=== PATIENT | female | born 2000 | race Caucasian/White ===

== ENCOUNTER 2021-10-01 08:40 | Day surgery (SDC) | payer BC ==
[~2021-10-01 08:40] MED LIST: Dexmedetomidine 200 MCG/2 ML SDV ONE; Glycopyrrolate 0.2 MG/ML SDV ONE; Lactated Ringers 1,000 ML IV SCH; Lidocaine 2% 5 ML SDV ONE; Ondansetron 4 MG/2 ML SDV ONE; Phenylephrine HCl In 0.9% NaCl 1 MG/10 ML Vial ONE; Propofol 200 MG/20 ML SDV ONE; Scopolamine 1.5 MG Transdermal Patch ONE
[2021-10-01] MEDS ORDERED: fentaNYL 100 MCG/2 ML SDV ONE (09:43)
[2021-10-01] MEDS ORDERED: Propofol 200 MG/20 ML SDV ONE ×2 (09:43)
[2021-10-01] MEDS ORDERED: Albuterol 0.083% 2.5 MG/3 ML Neb Soln NEB PRN (10:01)
[2021-10-01] MEDS ORDERED: HYDROmorphone 1 MG/ML Syringe IVPUSH PRN (10:01)
[2021-10-01] MEDS ORDERED: Ondansetron 4 MG/2 ML SDV IVPUSH PRN (10:01)
[2021-10-01] MEDS ORDERED: Naloxone 0.4 MG/ML SDV IVPUSH PRN (10:01)
[2021-10-01] MEDS ORDERED: Metoclopramide 10 MG/2 ML SDV IVPUSH PRN (10:01)
[2021-10-01] MEDS ORDERED: fentaNYL 50 MCG/ML SDV IVPUSH PRN (10:01)
[2021-10-01] MEDS ORDERED: Dexamethasone 4 MG/ML 5 ML MDV ONE (13:30)
[2021-10-01] MEDS ORDERED: Ondansetron 4 MG/2 ML SDV ONE (13:30)
[2021-10-01 14:16] VITALS: BP 119/69; PULSE 92
== END 2021-10-01 14:35 ==
LOC: MW.SDS 08:40 → EDSTATUS 10:30 → MW.SDS 14:35
PROVIDERS: ATTEND Obstetrics & Gynecology
DX: N93.8 Other specified abnormal uterine and vaginal bleeding (principal); F41.9 Anxiety disorder, unspecified; F84.0 Autistic disorder; Q90.9 Down syndrome, unspecified; Z79.899 Other long term (current) drug therapy; Z98.890 Other specified postprocedural states
CPT/HCPCS: 36415; 58300; 84703; J1100; J2405; J2704; J3010; 00940; A9270-GY; J3490

== ENCOUNTER 2024-04-05 12:12 | Emergency (ER) | payer BC, MEDICAID ==
[2024-04-05 12:24] VITALS: BP 109/76; PULSE 87
[2024-04-05 15:45] LABS: BASOPHILS ABSOLUTE AUTO 0.04 K/uL (0.00-0.20); BASOPHILS PERCENT AUTO 0.5 % (0.0-1.0); EOSINOPHILS ABSOLUTE AUTO 0.06 K/uL (0.00-0.45); EOSINOPHILS PERCENT AUTO 0.8 % (0.0-6.0); HEMATOCRIT 42.8 % (37.0-47.0); HEMOGLOBIN 15.2 g/dL (12.0-16.0); IMMATURE GRAN ABSOLUTE AUTO 0.01 K/uL (0.00-0.05); IMMATURE GRAN PERCENT AUTO 0.1 % (0.0-0.4); LYMPHOCYTES ABSOLUTE AUTO 2.83 K/uL (1.00-4.80); LYMPHOCYTES PERCENT AUTO 36.6 % (24.0-44.0); MEAN CORPUSCULAR HEMOGLOBIN 32.7 pg (28.0-32.0); MEAN CORPUSCULAR HGB CONC 35.5 g/dL (32.0-36.0); MEAN PLATELET VOLUME 9.9 fL (9.4-12.3); MONOCYTES ABSOLUTE AUTO 0.47 K/uL (0.00-0.80); MONOCYTES PERCENT AUTO 6.1 % (0.0-8.0); NEUTROPHILS ABSOLUTE AUTO 4.32 K/uL (1.80-7.70); NEUTROPHILS PERCENT AUTO 55.9 % (41.0-71.0); PLATELET COUNT,PLT 213 K/uL (150-400); RED BLOOD CELL COUNT 4.65 M/uL (4.10-5.30); WHITE BLOOD CELL COUNT,WBC 7.73 K/uL (3.9-11.3)
[2024-04-05 16:35] LABS: APPEARANCE,URINE CLEAR; BILIRUBIN,URINE NEGATIVE (NEGATIVE); COLOR,URINE YELLOW; GLUCOSE,URINE 100 mg/dL (NEGATIVE); KETONES,URINE NEGATIVE (NEGATIVE); LEUKOCYTE ESTERASE,URINE NEGATIVE (NEGATIVE); NITRITE,URINE NEGATIVE (NEGATIVE); OCCULT BLOOD,URINE NEGATIVE (NEGATIVE); PH,URINE 7.5 (5.0-8.0); PROTEIN,URINE NEGATIVE (NEGATIVE); UROBILINOGEN,URINE 0.2 EU/dL (<2.0)
[2024-04-05 16:38] LABS: ALANINE AMINOTRANSFERASE,ALT 24 IU/L (14-63); ALBUMIN 3.8 g/dL (3.4-5.0); ALKALINE PHOSPHATASE 81 U/L (46-116); ASPARTATE AMNIOTRANSFERASE,AST 31 IU/L (15-37); BILIRUBIN TOTAL 0.3 mg/dL (0.2-1.0); BLOOD UREA NITROGEN,BUN 18 mg/dL (7.0-18.0); CALCIUM 9.2 mg/dL (8.5-10.1); CHLORIDE,CL 96 mmol/L (98-107); CREATININE 0.7 mg/dL (0.6-1.0); GLUCOSE RANDOM 141 mg/dL (74-106); POTASSIUM,K 3.7 mmol/L (3.5-5.1); PROTEIN TOTAL,TP 7.7 g/dL (6.4-8.2); SODIUM,NA 133 mmol/L (136-145)
[2024-04-05 16:39] LABS: ESTIMATED GFR 125 mL/min (>60)
[2024-04-05 16:43] LABS: ACETAMINOPHEN <2.0 ug/mL; MAGNESIUM 2.2 mg/dL (1.8-2.4); SALICYLATE 0.8 mg/dL (0.0-20.0); TSH ULTRASENSITIVE 3.78 uIU/mL (0.36-3.74)
[2024-04-05 16:47] LABS: ETHANOL BLOOD MEDICAL < 3.0 mg/dL
[2024-04-05 16:51] LABS: AMPHETAMINES SCREEN, URINE NEGATIVE (CUTOFF=500); BARBITURATE SCREEN,URINE NEGATIVE (CUTOFF=200); BENZODIAZEPINES SCREEN,URINE PRESUMPTIVE POSITIVE (CUTOFF=150); BUPRENORPHINE SCREEN,URINE NEGATIVE (CUTOFF=10); METHADONE SCREEN, URINE NEGATIVE (CUTOFF=200); METHAMPHETAMINES SCREEN, URINE NEGATIVE (CUTOFF=500); OXYCODONE SCREEN,URINE NEGATIVE (CUT0FF=100); PCP SCREEN,URINE NEGATIVE (CUTOFF=25); THC SCREEN,URINE 20 NG/ML NEGATIVE (CUTOFF=50)
== END 2024-04-05 20:30 ==
LOC: MW.ED 12:12
DX: F91.9 Conduct disorder, unspecified (principal); F42.8 Other obsessive-compulsive disorder; Z86.59 Personal history of other mental and behavioral disorders; Z75.8 Other problems related to medical facilities and other health care; Z79.899 Other long term (current) drug therapy
CPT/HCPCS: 36415; 51702; 80053; 80143; 80179; 80305; 80307; 81003; 83735; 84439; 84443; 84703; 85025; 96372; 99284; J3360